=== PATIENT | female | born 1990 | race African-American/Black ===

== ENCOUNTER 2019-04-13 08:51 | Emergency (ER) | payer OTHER ==
[~2019-04-13] VITALS: Ht 160 cm; Wt 109.1 kg
[2019-04-13 08:55] VITALS: TEMP 98.8
[2019-04-13] MEDS ORDERED: CLEOCIN HCL300 MG PO (10:05)
[2019-04-13] MEDS ORDERED: NORCO 325 MG-51 TAB PO (10:05)
[2019-04-13 11:06] VITALS: BP 141/81; PULSE 88
== END 2019-04-13 11:06 | disposition home or self-care (01) ==
LOC: COL.ER 08:51
DX: K04.7 Periapical abscess without sinus (principal)
CPT/HCPCS: J1170; J1885; J2405; J7030